=== PATIENT | female | born 1935 | race Caucasian/White ===

== ENCOUNTER 2017-07-07 20:46 | Emergency (ER) | payer BC ==
--- NOTE | 2017-07-07 21:09 | ER Document Report ---
ED General - General Stated Complaint: ALTERED MENTAL STATUS Time Seen by Provider: 07/07/17 21:01 Notes: Patient is an 82-year-old female who comes emergency department for chief complaint of altered mental status. She comes by EMS, EMS states that daughter- in-law has power of curb builder and at home, they called the previous night and patient refused to come, they called again tonight and patient agreed to come. EMS states family reported weakness in that patient lost her balance in the bathroom but was eased to the floor without any fall injury. Family reported increased confusion although EMS unable to give specifics. - Related Data Allergies/Adverse Reactions: No Known Allergies Allergy (Unverified 07/07/17 21:42) Past Medical History - General Information source: Patient - Social History Smoking Status: Never Smoker Frequency of alcohol use: None Drug Abuse: None Lives with: Family Family History: Reviewed & Not Pertinent Neurological Medical History: Reports: Other - dementia Endocrine Medical History: Reports: Hx Hypothyroidism Surgical Hx: Negative - Immunizations Immunizations up to date: Yes Hx Diphtheria, Pertussis, Tetanus Vaccination: Yes Review of Systems - Review of Systems Constitutional: No symptoms reported EENT: No symptoms reported Cardiovascular: No symptoms reported Respiratory: No symptoms reported Gastrointestinal: No symptoms reported Genitourinary: No symptoms reported Female Genitourinary: No symptoms reported Musculoskeletal: No symptoms reported Skin: No symptoms reported Hematologic/Lymphatic: No symptoms reported Neurological/Psychological: See HPI Physical Exam - Vital signs Vitals: Resp BP Pulse Ox 18 140/85 H 98 07/07/17 20:52 07/07/17 20:52 07/07/17 20:52 - General General appearance: Appears well In distress: None - HEENT Head: Normocephalic, Atraumatic Eyes: Normal Conjunctiva: Normal Extraocular movements intact: Yes Eyelashes: Normal Pupils: PERRL Sinus: Normal Nasal: Normal Mouth/Lips: Normal Mucous membranes: Dry Pharynx: Normal Neck: Normal - Respiratory Respiratory status: No respiratory distress. No: Respiratory distress, Labored Breath sounds: Normal. No: Decreased air movement, Wheezing - Cardiovascular Rhythm: Regular. No: Irregularly irregular, Extrasystoles, Tachycardia Heart sounds: Normal auscultation, S1 appreciated, S2 appreciated Murmur: No Normal capillary refill: Yes - Abdominal Inspection: Normal Tenderness: Nontender. No: Tender, Guarding - Back Back: Normal, Nontender. No: Tender - Extremities General upper extremity: Normal inspection, Nontender, Normal ROM, Normal strength General lower extremity: Normal inspection, Nontender, Normal ROM, Normal strength - Neurological Neuro grossly intact: Yes Cognition: Normal Orientation: AAOx4 Fide Coma Scale Eye Opening: Spontaneous [place] Coma Scale Verbal: Oriented [place] Coma Scale Motor: Obeys Commands Fide Coma Scale Total: 15 Speech: Normal Cranial nerves: Normal Cerebellar coordination: Normal. No: Gait ataxia - needs occassional assistance , but generally walks in a straight line without difficulty and no obvious ataxia Motor strength normal: LUE, RUE, LLE, RLE Additional motor exam normals: Equal neurology physician assistant Sensory: Normal - Psychological Associated symptoms: Normal affect, Normal mood. No: Aggressive, Agitated, Angry, Anxious - Skin Skin Temperature: Warm Skin Moisture: Dry Skin Color: Normal Course - Re-evaluation Re-evalutation: 07/07/17 21:20 Family at bedside including [id number] who is medical power of curb builder. She states that last night patient began stuttering and appeared to not be able to speak with almost chewing motion of the mouth, this did resolve after less than 20 minutes. They state over the course of today patient has had episodes where she continued to appear to have difficulty to say when she was thinking and she had increased restlessness but otherwise did not appear abnormal. Tonight while at home with another relative patient reportedly was eased to the ground and appeared to pass out and not respond, they state that person watching her is not a reliable historian and they are unsure how long she might have been on the ground or unresponsive. Patient is extremely healthy and other than dementia her only medical history is hypothyroidism for which she is medicated. Patient also has DO NOT RESUSCITATE advanced directives. On my assessment patient is alert to person, place, confused to events, has no neurological deficits, ambulates without any difficulty, well-appearing on exam. Unremarkable vital signs. CBC shows minimal leukopenia, no shift, no anemia. Chemistry shows mild hyponatremia, otherwise generally unremarkable. Urinalysis unremarkable. Cardiac enzymes unremarkable. EKG showing sinus rhythm at a rate of 88 with no T-wave inversions or ST segment changes in consecutive leads, normal axis, QTC of 441. Chest x-ray unremarkable. CAT scan of the head showing chronic changes of atrophy and microvascular ischemia, no acute findings. 07/07/17 I was called by the nurse to check the patient, patient had gone into the bathroom with her relative, she had ambulated and sat on the toilet with only slight assistance, however when I found the patient she was sitting on the toilet, eyes open and staring, unresponsive, had tonic-clonic movements. I assisted the patient onto her wheelchair and onto the bed, she was given 0.5 mg of Ativan (she was given this just as tonic-clonic movements were resolving), seizure pads placed on the bed, ordered IV Keppra. 07/07/[address] Osullivan, Dr. Guthrie. On reevaluation patient remains unchanged, drowsy, appears postictal. 07/07/17 22:[address] Begum, hospitalist. She has concerns that we do not have the ability to perform the EEG or have formal neurology assessment for patient with multiple episodes of new onset seizures. 07/07/17 23:00 Called [facility], they are at capacity and not accepting patients at this time. Spoke with [facility] transfer center, pending call back from hospitalist. 07/07/17 23:[address] Granados, hospitalist, he accepts patient for transfer but states there might be a delay due to limited beds, requests that an MRI be ordered to be performed pending transfer. Order placed. Unable to complete until the morning because of availability issues. Patient's blood pressure dropped into the 80s, she is only 46 kg, she is asleep and sleeping soundly now in the middle of the night, gave 500 cc bolus of IV fluids and this improved to 98 systolic with a MAP of 71. 07/08/17 02:50 [facility] for the patient. I called and spoke to the pocketed spring machine operator, explained that I have not perform the MRI yet because we do not have it available over the weekend at night until 8 AM the next day, this is the reason this has not been completed. 07/08/17 03:07 Transfer team at bedside. Evaluated patient again, she is awake, responsive, denies any complaints. Vital signs unremarkable. Stable for transport. - Vital Signs Vital signs: Temp Pulse Resp BP Pulse Ox 98.0 F 84 15 128/92 H 96 07/07/17 21:41 07/07/17 21:28 07/08/17 02:45 07/08/17 02:45 07/08/17 02:45 - Laboratory Result Diagrams: 07/07/17 20:55 07/07/17 20:55 Laboratory results interpreted by me: 07/07/17 07/07/17 20:55 20:55 WBC 3.6 L RDW 18.8 H Sodium 132.1 L Chloride 96 L Glucose 141 H Discharge - Discharge Clinical Impression: New onset seizure, Tonic clonic convulsion Condition: Stable Disposition: [facility] Referrals: KASH ELMORE MD [Primary Care Provider] - Follow up as needed
[2017-07-07 21:15] LABS: ABSOLUTE LYMPHOCYTES (AUTO) 0.9 10^3/uL (0.5-4.7); ABSOLUTE MONOCYTES (AUTO) 0.4 10^3/uL (0.1-1.4); ABSOLUTE NEUT (AUTO) 2.2 10^3/uL (1.7-8.2); BASOPHILS % (AUTO) 0.9 % (0-2); HEMATOCRIT 37.8 % (36.0-47.0); HEMOGLOBIN 12.5 g/dL (12.0-15.5); LYMPHOCYTES % (AUTO) 25.4 % (13-45); MEAN CORPUSCULAR VOLUME 88 fl (80-97); MONOCYTES % (AUTO) 12.2 % (3-13); PLATELET COUNT 156 10^3/uL (150-450); RED CELL DISTRIBUTION WIDTH 18.8 % (11.5-14.0); SEGMENTED NEUTROPHILS % (AUTO) 60.5 % (42-78); TOTAL CELLS COUNTED % (AUTO) 100 %; WHITE BLOOD COUNT 3.6 10^3/uL (4.0-10.5)
[2017-07-07 21:25] LABS: ALANINE AMINOTRANSFERASE 21 U/L (9-52); ALBUMIN 3.7 g/dL (3.5-5.0); ALKALINE PHOSPHATASE 42 U/L (38-126); ANION GAP 12 (5-19); ASPARTATE AMINO TRANSFERASE 28 U/L (14-36); BILIRUBIN,DIRECT 0.4 mg/dL (0.0-0.4); BILIRUBIN,TOTAL 0.4 mg/dL (0.2-1.3); BLOOD UREA NITROGEN 11 mg/dL (7-20); CALCIUM 9.6 mg/dL (8.4-10.2); CARBON DIOXIDE 24 mmol/L (22-30); CHLORIDE 96 mmol/L (98-107); CREATINE KINASE 35 U/L (30-135); GLUCOSE 141 mg/dL (75-110); POTASSIUM 4.4 mmol/L (3.6-5.0); SODIUM 132.1 mmol/L (137-145); TOTAL PROTEIN 6.3 g/dL (6.3-8.2)
[2017-07-07 21:36] LABS: CREATINE KINASE MB 0.38 ng/mL (<4.55)
[2017-07-07 21:42] LABS: TROPONIN I < 0.012 ng/mL
[2017-07-07 22:13] LABS: APPEARANCE,URINE CLEAR; BILIRUBIN,URINE NEGATIVE (NEGATIVE); COLOR,URINE STRAW; GLUCOSE, URINE NEGATIVE (NEGATIVE); KETONES,URINE NEGATIVE (NEGATIVE); LEUKOCYTE ESTERASE,URINE NEGATIVE (NEGATIVE); NITRITE,URINE NEGATIVE (NEGATIVE); PROTEIN,URINE NEGATIVE (NEGATIVE); URINE SPECIFIC GRAVITY 1.006; UROBILINOGEN,URINE NEGATIVE mg/dL (<2.0)
--- NOTE | 2017-07-07 22:15 | RADIOLOGY REPORT (SQ) ---
EXAM DESCRIPTION: CT HEAD WITHOUT COMPLETED DATE/TIME: 07/07/2017 9:51 pm REASON FOR STUDY: altered mental status COMPARISON: None. TECHNIQUE: Axial images acquired through the brain without intravenous contrast. Images reviewed wi th bone, brain and subdural windows. Images stored on PACS. All CT scanners at this facility use dose modulation, iterative reconstruction, and/or weight based d osing when appropriate to reduce radiation dose to as low as reasonably achievable (ALARA). [facility]: Dose Right [facility]: CareDose [facility]: Dose Right [facility]: Teradose 4D [facility]: [employer] RADIATION DOSE: CT Rad equipment meets quality standard of care and radiation dose reduction techniq ues were employed. CTDIvol: 64.6 mGy. DLP: 1163 mGy-cm.mGy. LIMITATIONS: None. FINDINGS: VENTRICLES: Age-appropriate. CEREBRUM: No masses. No hemorrhage. No midline shift. Areas of low density in the white matter mos t likely due to chronic micro-vascular ischemic change. No evidence for acute infarction. CEREBELLUM: No masses. No hemorrhage. No alteration of density. No evidence for acute infarction. EXTRAAXIAL SPACES: Age-related involutional change. No fluid collections. No masses. ORBITS AND GLOBE: No intra- or extraconal masses. Normal contour of globe without masses. CALVARIUM: No fracture. PARANASAL SINUSES: No fluid or mucosal thickening. SOFT TISSUES: No mass or hematoma. OTHER: No other significant finding. IMPRESSION: CHRONIC CHANGES OF ATROPHY AND MICROVASCULAR ISCHEMIA. NO ACUTE PROCESS. EVIDENCE OF ACUTE STROKE: NO. TECHNICAL DOCUMENTATION: JOB ID: [id number] Quality ID # [id number]: Final reports with documentation of one or more dose reduction techniques (e.g., Au tomated exposure control, adjustment of the mA and/or kV according to patient size, use of iterative reconstruction technique) 2010 [employer]- All Rights Reserved Reading location - IP/workstation name: [email or web address]
--- NOTE | 2017-07-07 22:17 | RADIOLOGY REPORT (SQ) ---
EXAM DESCRIPTION: CHEST SINGLE VIEW COMPLETED DATE/TIME: 07/07/2017 9:55 pm REASON FOR STUDY: altered mental status COMPARISON: None. EXAM PARAMETERS: NUMBER OF VIEWS: One view. TECHNIQUE: Single frontal radiographic view of the chest acquired. RADIATION DOSE: NA LIMITATIONS: None. FINDINGS: LUNGS AND PLEURA: No acute opacities, masses or pneumothorax. No pleural effusion. MEDIASTINUM AND HILAR STRUCTURES: Age-appropriate. HEART AND VASCULAR STRUCTURES: Heart normal in size. Normal vasculature. BONES: No acute findings. HARDWARE: None in the chest. OTHER: No other significant finding. IMPRESSION: NO ACUTE RADIOGRAPHIC FINDING IN THE CHEST. TECHNICAL DOCUMENTATION: JOB ID: [id number] 2010 [employer]- All Rights Reserved Reading location - IP/workstation name: [email or web address]
[2017-07-07] MEDS ORDERED: LEVETIRACETAM 500 MG/NACL-ISO 500 MG/100 ML RTUPB IV ONE (22:22)
[2017-07-07] MEDS ORDERED: LORAZEPAM INJ 2 MG/1 ML VIAL ONE (22:23)
[2017-07-07] MEDS ORDERED: LORAZEPAM INJ 2 MG/1 ML VIAL IV ONE (22:23)
[2017-07-08] MEDS ORDERED: NORMAL SALINE 1000 ML 500 ML IV ONE (01:30)
[2017-07-08 03:10] VITALS: BP 102/65
--- NOTE | 2017-07-08 07:50 | EKG REPORT ---
SEVERITY:- ABNORMAL ECG - SINUS RHYTHM LEFT ATRIAL ABNORMALITY : Confirmed by: Clayton Murry MD 08-Jul-2017 07:49:53
== END 2017-07-08 03:31 | disposition short-term general hospital (02) ==
LOC: ER 20:46
DX: R56.9 Unspecified convulsions (principal); R41.82 Altered mental status, unspecified
CPT/HCPCS: 93005; 99285; 96361; 51701; 96375; 96365; 36415; 82553; 82550; 83735; 85025; 80053; 81001; 84484; 71045; 70450; 93010; J2060; J7030; J1953